=== PATIENT | female | born 1995 | race Caucasian/White ===

== ENCOUNTER → 2019-01-22 | Outpatient (CLI) | payer MEDICARE, SELFPAY ==
[2013-09-09 00:11] VITALS: BMI 53.9
--- NOTE | 2019-01-22 08:50 | EKG12_ITS ---
Test Reason : FAMILY HX Blood Pressure : / mmHG Vent. Rate : 069 BPM Atrial Rate : 069 BPM P-R Int : 128 ms QRS Dur : 098 ms QT Int : 394 ms P-R-T Axes : 010 084 063 degrees QTc Int : 422 ms Sinus rhythm with marked sinus arrhythmia Otherwise normal ECG Confirmed by CATRACHITA GUTIERRES ([id number]), editor city LEXX MERCER ([id number]) on 01/28/2019 9:26:46 AM Referred By: Arabella BARRERA Confirmed By:CATRACHITA GUTIERRES
== END | disposition home or self-care (01) ==
LOC: CVS 08:47
PROVIDERS: Referring Provider Nurse Practitioner Family; Visit Provider Nurse Practitioner Family
DX: Z82.49 Family history of ischemic heart disease and other diseases of the circulatory system (principal)
CPT/HCPCS: 93005

== ENCOUNTER → 2019-03-24 | Outpatient (CLI) | payer MEDICARE, SELFPAY ==
[2019-03-08 13:19] VITALS: BMI 57.9
--- NOTE | 2019-03-24 06:30 | ECHOD_ITS ---
Reason For Study: CHEST PAIN Procedure This was a 2D Doppler, Color Flow transthoracic echocardiogram. The study was technically difficult. Due to body habitus. Exam performed in department. Left Ventricle Normal size and thickness. The estimated ejection fraction is 55 %. No evidence for diastolic dysfunction. No regional wall motion abnormalities noted. Right Ventricle Normal RV size. Normal systolic function. Atria Normal left atrium. Normal right atrium. No doppler evidence for ASD. Mitral Valve There is no mitral valve stenosis. No mitral valve insufficiency. Tricuspid Valve There is no tricuspid stenosis. Unable to estimate RV systolic pressure due to insufficient tricuspid regurgitant envelope. No tricuspid valve insufficiency. Aortic Valve Trisinus/trileaflet aortic valve. There is no aortic stenosis. No aortic valve insufficiency. Pulmonic Valve There is no pulmonic valvular stenosis. No pulmonic valve insufficiency. Great Vessels Normal aortic root. Pericardium/Pleural No pericardial effusion. MMode/2D Measurements & Calculations LVIDd: 5.6 cm IVSd: 0.91 cm Ao root diam: 2.8 cm LVIDs: 3.6 cm LVPWd: 0.89 cm RVDd: 3.3 cm FS: 35.5 % LAV(MOD-bp): 38.1 ml LA A4 area: 14.5 cm2 LA dimension(2D): 3.6 cm LAV(MOD-bp) Indexed: 16.0 ml/m2 LAV(MOD-sp2): 36.7 ml LAV(MOD-sp4): 35.8 ml RA A4 area: 12.8 cm2 Time Measurements MV dec time: 0.19 sec Doppler Measurements & Calculations MV E max nathan: 93.3 cm/sec Lat Peak E' Nathan: 11.0 cm/sec Med Peak E' Nathan: 9.2 cm/sec MV A max nathan: 63.3 cm/sec E/E' lat: 8.5 E/E' med: 10.1 MV E/A: 1.5 Ao V2 max: 101.4 cm/sec LV V1 max: 84.1 cm/sec PA V2 max: 89.2 cm/sec Ao max P.1 mmHg LV V1 max P.8 mmHg TR max nathan: 274.3 cm/sec TR max P.4 mmHg Interpretation Summary The estimated ejection fraction is 55 %. No evidence for diastolic dysfunction. Ordering Physician: Cathi Pittman Referring Physician: Mirta Almanza [facility] Performed By: Dalila Trinidad RDCS, RVT
--- NOTE | 2019-03-25 09:30 | STRESSREP ---
Stress Test Report Date: 03/24/2019 Procedure: Exercise tolerance test/imaging study Indications: Chest pain Consent: Per the patient Procedure: The patient exercised on a Herb protocol for 4 minutes achieving a peak heart rate of 171 bpm (87 % predicted maximal heart rate) with a peak blood pressure 152/64 mmHg and a peak MET capacity of 5.8 METs. The baseline ECG demonstrated normal sinus rhythm. The peak exercise ECG demonstrated sinus tachycardia with fair amount of baseline artifact. There is about half to [address] depression with T wave inversion in lead III. EKG during recovery revealed return of ST segments to baseline [There were no cardiac dysrhythmias pretest, during exercise, or recovery]. The functional capacity was considered decreased for age. There was [no complaint of chest discomfort during exercise or recovery]. The examination was discontinued secondary to dyspnea. Impression: 1. Technically adequate (percent predicted maximal heart rate greater than 85%) exercise tolerance test 2. Stress test is borderline for exercise-induced EKG changes of ischemia 3. The test test negative for exercise-induced chest pain 4. Functional capacity is decreased for age 5. Nuclear images pending Myocardial perfusion imaging study: Technique: The patient was injected with 14.7 mCi of technetium 99m Cardiolite and subsequently rest SPECT Cardiolite nuclear imaging was obtained in the horizontal long, vertical long, and short axis views. The patient exercised on a Herb protocol. Please see above for details. The patient was injected with 44.9 mCi of technetium 99m Cardiolite and subsequently stress SPECT Cardiolite nuclear imaging was obtained in the horizontal long, vertical long, and short axis views. A gated Cardiolite study at peak stress was obtained. Interpretation: Rest and stress SPECT Cardiolite nuclear imaging status post realignment, normalization, and attenuation correction, demonstrates decreased radioisotope uptake in the apex and anterior wall on the rest images that improves on the stress images. These findings are suggestive of shifting breast attenuation artifact. The gated Cardiolite study demonstrates no significant regional wall motion abnormalities. The reported LVEF is 60%. Impression: 1. There is no evidence of significant ischemia or infarction. 2. The gated Cardiolite study reports an LVEF of 60 %. This note was generated with [employer] software. It may contain incorrect words, spelling, and punctuation that were not noted in checking the note before signing.
== END | disposition home or self-care (01) ==
LOC: CVS 06:27
PROVIDERS: Referring Provider Specialist; Visit Provider Specialist
DX: R07.9 Chest pain, unspecified (principal)
CPT/HCPCS: 78452; 93017; 93306; A9500; A4216

== ENCOUNTER → 2020-04-20 12:23 | Outpatient (CLI) | payer MEDICARE, MEDICAID, SELFPAY ==
[2019-09-29 10:13] VITALS: BMI 55.7
[2020-04-20 14:03] LABS: Vitamin D,25 Hydroxy 38.6 ng/mL
[2020-04-20 14:06] LABS: AST(SGOT) 21 U/L (15-37); Alanine Aminotransfer ALT/SGPT 42 U/L (13-56); Albumin, Serum 3.6 g/dL (3.2-5.0); Alkaline Phosphatase 107 U/L (45-117); Anion Gap 4 (5-15); BUN 10 mg/dL (7-18); BUN/Creat Ratio 8.8 RATIO (10-20); Calcium,Total 9.2 mg/dL (8.5-10.1); Chloride 111 mmol/L (98-107); Cholesterol 109 mg/dL (200); Creatinine, Serum 1.13 mg/dL (0.55-1.02); EST Glomerular Filtration Rate 62 mL/min (>60); Est Glom Filt Rate - Afr Amer 74 mL/min (>60); Globulin 3.7 g/dL (2.2-4.2); Glucose 88 mg/dL (74-106); High Density Lipoprotein 27 mg/dL; Potassium 3.7 mmol/L (3.5-5.1); Protein, Total 7.3 g/dL (6.4-8.2); Sodium Level 142 mmol/L (136-145); Triglycerides 182 mg/dL; Very Low Density Lipoprotein 36 mg/dL (5-40)
== END ==
PROVIDERS: Visit Provider Nurse Practitioner Family
DX: E78.5 Hyperlipidemia, unspecified (principal); E55.9 Vitamin D deficiency, unspecified; R53.1 Weakness
CPT/HCPCS: 36415; 80053; 80061; 82306

== ENCOUNTER → 2025-02-21 | Outpatient (CLI) | payer MEDICARE, MEDICAID, SELFPAY ==
[2025-02-21 12:56] LABS: Absolute Lymphocyte Count 2.43 X10^3/uL (0.83-4.51); Absolute Neutrophil Count 6.3 X10^3/uL (2.0-7.7); Basophil# 0.06 X10^3/uL; Basophil% 0.6 % (0-1); Eosinophils% 4.9 % (0-5); Hematocrit 42.5 % (37-47); Hemoglobin 13.1 g/dL (12.0-15.0); Lymphocyte # 2.43 X10^3/ul (0.83-4.51); Lymphocyte % 23.9 % (19-41); Mean Corp Hgb Conc 30.8 g/dL (32-36); Mean Corpuscular Hgb 27.5 pg (27.0-32.0); Mean Corpuscular Volume 89.3 fL (81-99); Mean Platelet Vol. 10.3 fl (6.2-12.0); Monocyte# 0.75 X10^3/uL; Monocyte% 7.4 % (0-10); NRBC Flagged by Analyzer 0 % (0-5); Neutrophil # 6.33 X10^3/uL (2.7-7.7); Neutrophil % 62.3 % (47-70); Platelet Count 305 K/mm3 (150-450); RBC Distribution Width CV 15.3 % (11.6-14.6); Red Blood Count 4.76 M/mm3 (4.2-5.4); White Blood Count 10.2 K/mm3 (4.4-11.0)
[2025-02-21 13:22] LABS: Hemoglobin A1c 5.5 % (<=5.6)
[2025-02-21 13:58] LABS: ALB/GLOB Ratio 1.5 RATIO (0.9-2.4); AST(SGOT) 24 U/L (<=31); Alanine Aminotransfer ALT/SGPT 23 U/L (<=34); Albumin, Serum 3.7 g/dL (3.5-5.0); Alkaline Phosphatase 95 U/L (35-104); Anion Gap 11 (5-15); BUN 8 mg/dL (4-19); BUN/Creat Ratio 7.6 RATIO (10-20); Calcium,Total 9.2 mg/dL (7.6-11.0); Carbon Dioxide 21.9 mmol/L (21.0-32.0); Chloride 106 mmol/L (98-108); Cholesterol 165 mg/dL (<=200); Creatinine, Serum 1.03 mg/dL (0.70-1.20); EST Glomerular Filtration Rate 75 (>60); Globulin 2.4 g/dL (2.2-4.2); Glucose 104 mg/dL (70-99); High Density Lipoprotein 32 mg/dL; Low Density Lipoprotein Calc. 89 mg/dL; Potassium 4.2 mmol/L (3.3-5.1); Protein, Total 6.1 g/dL (5.9-8.4); Sodium Level 139 mmol/L (133-145); Total Bilirubin 0.18 mg/dL (0.00-1.30); Triglycerides 220 mg/dL; Very Low Density Lipoprotein 44 mg/dL (5-40); cholesterol:hdl ratio screen 5.21
[2025-02-21 15:04] LABS: Iron 45 ug/dL (50-170); Iron Binding Capacity,Total 353 ug/dL (250-450); Iron Binding Capacity,Unsat 308 ug/dL (228-428)
[2025-02-21 15:17] LABS: Ferritin 63 ng/mL (22-378); Vitamin B12 1061 pg/mL (180-914); Vitamin D,25 Hydroxy 17.4 ng/mL (30-100)
== END | disposition home or self-care (01) ==
LOC: VSLAB 10:22
PROVIDERS: PCP Nurse Practitioner Family; Visit Provider Nurse Practitioner Family
DX: N92.1 Excessive and frequent menstruation with irregular cycle (principal); R53.83 Other fatigue; R73.03 Prediabetes; E78.5 Hyperlipidemia, unspecified; R20.0 Anesthesia of skin; E55.9 Vitamin D deficiency, unspecified
CPT/HCPCS: 36415; 80053; 80061; 82306; 82607; 82728; 82746; 83036; 83540; 83550; 84439; 84443; 85025

== ENCOUNTER → 2025-06-24 | Outpatient (CLI) | payer MEDICARE, MEDICAID, SELFPAY ==
[2025-06-24 10:26] LABS: Hematocrit 43.8 % (37-47); Hemoglobin 14.1 g/dL (12.0-15.0); Immature Granulocytes Count 0.080 X10^3/uL (0.0-0.0); Mean Corp Hgb Conc 32.2 g/dL (32-36); Mean Corpuscular Volume 90.5 fL (81-99); Mean Platelet Vol. 10.3 fl (6.2-12.0); NRBC Flagged by Analyzer 0 % (0-5); Platelet Count 317 K/mm3 (150-450); RBC Distribution Width CV 14.9 % (11.6-14.6); RBC Distribution Width SD 49.6 fl (35.1-43.9); Red Blood Count 4.84 M/mm3 (4.2-5.4); White Blood Count 12.4 K/mm3 (4.4-11.0)
[2025-06-24 11:03] LABS: Ferritin 84 ng/mL (22-378); Iron 38 ug/dL (50-170); Iron Binding Capacity,Total 335 ug/dL (250-450); Iron Binding Capacity,Unsat 297 ug/dL (228-428); Vitamin D,25 Hydroxy 35.1 ng/mL (30-100)
== END | disposition home or self-care (01) ==
LOC: VSLAB 08:31
PROVIDERS: PCP Nurse Practitioner Family; Visit Provider Nurse Practitioner Family
DX: E61.1 Iron deficiency (principal); E55.9 Vitamin D deficiency, unspecified
CPT/HCPCS: 36415; 82306; 82728; 83540; 83550; 85025